=== PATIENT | female | born 1975 | race Caucasian/White ===

== ENCOUNTER 2020-10-03 09:39 | Emergency (ER) | payer OTHER ==
[~2020-10-03 09:39] MED LIST: FLOMAX 0.4 MG0.4 MG PO; NORCO 5-325 TA1 EACH PO; VIBRAMYCIN100 M1 PO
[2020-10-03 11:14] LABS: BILIRUBIN NEGATIVE (NEGATIVE); BLOOD 3+ Ery/uL (NEGATIVE); COLOR YELLOW (YELLOW); GLUCOSE (U) NORMAL (NORMAL); LEUKOCYTES 1+ Leu/uL (NEGATIVE); NITRITE POSITIVE (NEGATIVE); PROTEIN 2+ mg/dL (NEGATIVE); SPECIFIC GRAVITY 1.025 (1.001-1.030); UROBILINOGEN 0.2 mg/dL (0.2-1.0); pH 5.5 (5.0-9.0)
[2020-10-03 11:20] LABS: CLARITY HAZY (CLEAR)
[2020-10-03 11:22] LABS: URINARY WBC TNTC
[2020-10-03 11:25] LABS: BACTERIA 4+
[2020-10-03 11:36] LABS: BASOPHIL 0.5 % (0-2); EOSINOPHIL 0.9 % (0-5); HCT 40.8 % (37.0-47.0); HGB 13.1 g/dl (12.5-16.0); LYMPHOCYTE 11.9 % (15-48); MCH 30.7 pg (25.0-31.0); MCHC 32.1 g/dL (32.0-36.0); MCV 95.6 fL (78.0-100.0); MONOCYTE 5.9 % (0-12); MPV 10.3 fL (6.0-9.5); NEUTROPHIL 80.5 % (41-80); NRBC 0; PLT 154 K/uL (150-400); RBC 4.27 M/uL (4.20-5.40); RDW 13.1 % (11.5-14.0); WBC 7.4 K/uL (4.0-10.5)
[2020-10-03 12:09] LABS: ALBUMIN 3.4 g/dL (3.4-5.0); BILIRUBIN - TOTAL 0.3 mg/dL (0.2-1.0); BUN/CREAT RATIO (CALC) 18.6 RATIO; CREATININE 0.7 mg/dL (0.51-0.95); GLOBULIN (CALCULATION) 3.4 g/dL; POTASSIUM 3.3 mmol/L (3.5-5.1); TOTAL PROTEIN 6.8 g/dL (6.4-8.2)
[2020-10-03 12:14] LABS: LACTIC ACID 0.7 mmol/L (0.4-1.9)
[2020-10-03] MEDS ORDERED: FLOMAX0.4 MG PO (13:32)
[2020-10-03] MEDS ORDERED: BACTRIM DS TAB1 EACH PO (13:32)
[2020-10-03] MEDS ORDERED: NORCO 5-325 TA1 EACH PO (13:32)
== END 2020-10-03 13:54 | disposition home or self-care (01) ==
LOC: FER 09:39
PROVIDERS: Emergency Medicine
DX: N13.6 Pyonephrosis (principal); Z87.442 Personal history of urinary calculi; Z90.710 Acquired absence of both cervix and uterus; Z98.890 Other specified postprocedural states; Z98.84 Bariatric surgery status; Z88.8 Allergy status to other drugs, medicaments and biological substances; Z87.891 Personal history of nicotine dependence
CPT/HCPCS: 36415; 80053; 81001; 83605; 85025; 87077; 87088; 87186; J0696; J1885; J7030

== ENCOUNTER 2021-03-28 16:48 | Emergency (ER) | payer OTHER ==
[~2021-03-28 16:48] MED LIST changes: +BACTRIM DS TAB1 EACH PO; +FLOMAX0.4 MG PO
[2021-03-28 17:51] LABS: BILIRUBIN 1+ mg/dL (NEGATIVE); BLOOD 3+ Ery/uL (NEGATIVE); COLOR YELLOW (YELLOW); GLUCOSE (U) NORMAL (NORMAL); LEUKOCYTES NEGATIVE Leu/uL (NEGATIVE); NITRITE NEGATIVE (NEGATIVE); PROTEIN 2+ mg/dL (NEGATIVE); SPECIFIC GRAVITY >=1.030 (1.001-1.030); UROBILINOGEN 0.2 mg/dL (0.2-1.0); pH 5.5 (5.0-9.0)
[2021-03-28 17:57] LABS: CLARITY HAZY (CLEAR)
[2021-03-28 18:02] LABS: BACTERIA 1+; SQUAMOUS EPITHELIAL CELLS RARE; URINARY RBC TNTC; URINARY WBC RARE
[2021-03-28 18:03] LABS: YEAST PRESENT
[2021-03-28 18:06] LABS: BASOPHIL 0.6 % (0-2); EOSINOPHIL 6.8 % (0-5); HGB 11.6 g/dl (12.5-16.0); LYMPHOCYTE 27.6 % (15-48); MCH 30.3 pg (25.0-31.0); MCHC 32.2 g/dL (32.0-36.0); MONOCYTE 8.2 % (0-12); MPV 10.5 fL (6.0-9.5); NEUTROPHIL 56.6 % (41-80); NRBC 0; PLT 135 K/uL (150-400); RBC 3.83 M/uL (4.20-5.40); RDW 13.3 % (11.5-14.0)
[2021-03-28 18:18] LABS: ALBUMIN 3.2 g/dL (3.4-5.0); BILIRUBIN - TOTAL 0.2 mg/dL (0.2-1.0); CREATININE 0.81 mg/dL (0.51-0.95); GLOBULIN (CALCULATION) 3.3 g/dL; POTASSIUM 3.9 mmol/L (3.5-5.1); TOTAL PROTEIN 6.5 g/dL (6.4-8.2)
[2021-03-28] MEDS ORDERED: FLOMAX0.4 MG PO (19:31)
[2021-03-28] MEDS ORDERED: NORCO 5-325 TA1 EACH PO (19:32)
== END 2021-03-28 19:45 | disposition home or self-care (01) ==
LOC: FER 16:48
PROVIDERS: Nurse Practitioner Family
DX: N13.2 Hydronephrosis with renal and ureteral calculous obstruction (principal); Z98.84 Bariatric surgery status; Z88.8 Allergy status to other drugs, medicaments and biological substances
CPT/HCPCS: 36415; 80053; 81001; 85025; J1885; J2405; J7030

== ENCOUNTER 2021-09-17 10:37 | Emergency (ER) | payer OTHER | END 2021-09-17 15:01 | disposition home or self-care (01) | LOC: FER 10:37 | DX: U07.1 COVID-19 (principal); Z88.8 Allergy status to other drugs, medicaments and biological substances | CPT/HCPCS: 99283; U0002 ==